=== PATIENT | male | born 1995 | race Caucasian/White ===

== ENCOUNTER 2023-04-28 11:03 | Outpatient (AMB) | payer OTHER, SELFPAY ==
[2023-04-28 12:12] VITALS: BP 150/74; PULSE 59; TEMP 36.1; O2SAT 99; BMI 38.6
--- NOTE | 2023-04-28 12:12 | AM.OFFWIN_ITS ---
Intake Vital Signs 04/28/23 12:12 Height 6 ft 3 in Weight 139.933 kg BMI 38.6 BP 150/74 H Blood Pressure Location Rt brachial Position Sitting Pulse 59 Pulse Source Pulse Oximeter Temp 97 F Temp Source Temporal Artery Scan Pulse Oximetry (%) 99 Intake Visit Reasons: [employer] WC Stung by Bee/RT Hand Intake Note: Pt is here c/o having a bee sting he got three days ago. Pt states he put a cold pack and took benadryl and was fine until this morning, he woke up and his right hand and wrist are swollen. Patient Tobacco Use Status: Never used Tobacco Allergies No Known Allergies Allergy (Verified 04/28/23 12:14) Do you need a note to return to daycare/school/sports/work: Yes HPI HPI Comments History of Present Illness Details 27-year-old male presents for cellulitis to the right upper extremity after being stung by a bee. States that the swelling and redness has worsened. He does not report measured fevers, chills, nausea vomiting, or loss of sensation. [facility] Social History Patient Tobacco Use Status: Never used Tobacco Review of Systems Const Details: Constitutional: No Fever, No Chills Cardiovascular: No Chest Pain, No SOB Respiratory: No Cough, No Dyspnea Gastrointestinal: No Nausea, No Vomiting, No Diarrhea, No abdominal Pain Musculoskeletal: positive right hand redness, swelling and pain, No Myalgias, No Joint Swelling Skin: No Skin lacerations, No rash Neuro: No Weakness, No Numbness, No Paresthesias, No Dizziness, No Headache All systems reviewed & are unremarkable except as noted in HPI and below Physical Exam Vital Signs: Last Vital Signs Temp 97 F 04/28/23 12:12 Pulse 59 04/28/23 12:12 BP 150/74 H 04/28/23 12:12 Pulse Ox 99 04/28/23 12:12 BMI result Body Mass Index 38.6 Appearance: Alert. Oriented X3. No acute distress. Eyes: Pupils equal, round and reactive to light. Neck: Normal inspection. Neck supple. CVS: Normal heart rate and rhythm. Pulses normal. Respiratory: No respiratory distress. Breath sounds normal. Skin: Cellulitis to the right hand from fingers to wrist, bee sting site to the right dorsal aspect of the 4th finger. Skin warm and dry. Normal skin color. Normal skin turgor. Extremities: No lower extremity edema. Full range of motion to the digits, no indication of tendon deficit to the digits or wrist. Strength 5/5 with brisk capillary refill. Neuro: No motor deficit. No sensory deficit. Cranial nerves 2-12 intact. Assessment & Plan Assessment & Plan (1) Cellulitis of right hand: Code(s): L03.113 - Cellulitis of right upper limb Plan 27-year-old male presents for cellulitis to the right upper extremity after being stung by a bee. States that the swelling and redness has worsened. He does not report measured fevers, chills, nausea vomiting, or loss of sensation. Patient has full range of motion to all of his digits although tight to move his fingers because of the swelling. No indication of tendon deficit, and low likelihood tenosynovitis. This most likely cellulitis due to insect sting, will treat with cefuroxime and doxycycline. patient does understand the photosensitive reaction of doxycycline and agrees to wear protective measures while going outdoors. Patient is alert oriented x4, answering questions politely and appropriately. Even unlabored respirations. Afebrile. Nontoxic. Stable vital signs within normal limits with an elevated blood pressure 150/74. Patient does not take any medications. Patient does understand that if the symptoms do not improve over the next 2 days, that he should present to the emergency department. He does understand that if symptoms worsen the develops fevers, chills, diaphoresis, that he must present to the emergency department immediately. Patient verbalized understanding of discharge instructions. Verbalized understandings of signs and symptoms indicating need for emergent intervention. Medications: New cefuroxime axetil 500 mg PO Q12H 10 days 20 tabs 0RF doxycycline monohydrate 100 mg PO Q12H 10 days 20 caps 0RF Patient Instructions: You were evaluated for cellulitis after a bee sting to the right hand. Take cefuroxime 500 mg every 12 hours for the next 10 days. Take doxycycline 100 mg every 12 hours for the next 10 days. Doxycycline has a photosensitive reaction when exposed to [place]. Wear long sleeves, hat, and sunscreen while going outside. Alternate Tylenol 650 mg every 6 hours and Motrin 600 mg every 6 hours as needed for pain management. Consider taking these medications 3 hours apart so you have pain and fever management every 3 hours. Write down what time you take these medications to prevent accidental overdose. Motrin is the same medication as Advil and ibuprofen. Tylenol is the same medication as acetaminophen. If your symptoms do not improve in 2 days, present to the emergency department for evaluation. Thank you for choosing this urgent care for evaluation. Please follow-up with primary care physician as needed. Return to the emergency department for any new, concerning, or worsening symptoms. Coding Level of Care Code New Pt Level 3 (84555) Diagnoses Cellulitis of right hand L03.113
== END 2023-04-28 12:55 | disposition home or self-care (01) ==
PROVIDERS: Visit Provider Nurse Practitioner Family
DX: L03.113 Cellulitis of right upper limb (principal)
CPT/HCPCS: 99203